=== PATIENT | female | born 1955 | race Caucasian/White ===

== ENCOUNTER 2021-04-10 09:29 | Outpatient (CLI) | payer BC, OTHER ==
[~2021-04-10] VITALS: Ht 160 cm; Wt 70.3 kg
[~2021-04-10 09:29] MED LIST: LVT.05T PO
[2021-04-10] MEDS ORDERED: ONDANSETRON 4 MG/2 ML (SDV) Z0FRAN IV PRN (09:30)
[2021-04-10] MEDS ORDERED: ACETAMINOPHEN 500 MG TAB (TYLENOL) PO PRN (09:30)
[2021-04-10] MEDS ORDERED: CASIRIVIMAB/IMDEVIMAB 1,200 MG in NS (IVPB) 250 ML IV ONE (09:30)
[2021-04-10] MEDS ORDERED: EPINEPHrine INJECTION 1 MG/ML AMP IM PRN (09:30)
[2021-04-10] MEDS ORDERED: diphenhydrAMINE 50 MG/ML INJ (BENADRYL) IV PRN (09:30)
[2021-04-10 10:12] VITALS: BP 124/61
[2021-04-10 11:15] VITALS: BP 126/60
== END 2021-04-10 11:20 | disposition home or self-care (01) ==
LOC: INFUSION 09:29
PROVIDERS: ATTEND Nurse Practitioner Family
DX: U07.1 COVID-19 (principal)

== ENCOUNTER 2023-05-26 05:48 | Outpatient (CLI) | payer MEDICARE ==
[~2023-05-26] VITALS: Ht 160 cm; Wt 73.9 kg
[2023-05-26] MEDS ORDERED: ZINC50TA51 PO (11:11)
[2023-05-26] MEDS ORDERED: LEVO25TA5 PO (11:11)
[2023-05-26] MEDS ORDERED: CALC625T14 PO (11:11)
== END 2023-05-26 11:12 | disposition home or self-care (01) ==
LOC: PREOP 05:48
PROVIDERS: ATTEND Surgery
DX: Z01.818 Encounter for other preprocedural examination (principal)

== ENCOUNTER 2023-06-07 07:44 | Day surgery (SDC) | payer BC, MEDICARE ==
[~2023-06-07] VITALS: Ht 160 cm; Wt 73.9 kg
[~2023-06-07 07:44] MED LIST changes: +CALC625T14 PO; +LEVO25TA5 PO; +ZINC50TA51 PO
[2023-06-07] MEDS ORDERED: LACTATED RINGERS 1,000 ML 1,000 ML IV STA (07:50)
[2023-06-07 08:05] VITALS: BP 113/75
--- NOTE | 2023-06-07 08:40 | Progress Note-Pre Operative ---
Pre-Operative Progress Note Date of Available H&P: May 18, 2023 Date H&P Reviewed: Jun 07, 2023 Time H&P Reviewed: 08:33 History & Physical: H&P Reviewed, Patient Examed, No changes noted Pre-Operative Diagnosis: Screening CHRISTIAN BISHOP DO Jun 07, 2023 08:39
--- NOTE | 2023-06-07 09:38 | Anesthesia-General Post-Op ---
MAC Patient Condition Mental Status/LOC: Same as Preop Cardiovascular: Satisfactory Nausea/Vomiting: Absent Respiratory: Satisfactory Pain: Controlled Complications: Absent Post Op Complications Complications None Follow Up Care/Instructions Patient Instructions None needed. Anesthesiology Discharge Order Discharge Order Patient is doing well, no complaints, stable vital signs, no apparent adverse anesthesia problems. No complications reported per nursing. OTILIA BROWN CRNA Jun 07, 2023 09:38
--- NOTE | 2023-06-07 09:40 | Progress Note-Post Operative ---
Post-Operative Progess Note Surgeon (s)/Commercial Credit Reviewer (s) Surgeon CHRISTIAN BISHOP DO Commercial Credit Reviewer: CONSTANTIN Milian Pre-Operative Diagnosis Screening Post-Operative Diagnosis Diverticula Int Hemorrhoids Procedure & Operative Findings Date of Procedure 06/07/23 Procedure Performed/Findings Colonoscopy PROCEDURE NOTE: After informed consent was obtained, the patient was brought to the endoscopy suite, placed in bed in left lateral decubitus position. She was administered IV sedation by the COMMODITY SUPERVISOR who then monitored her vitals the entire time, heart rate, blood pressure and pulse ox and the scope was inserted. On the way in I noted some diverticula and took a picture on the way out. I pushed all the way to about 150 cm and pushed into the cecum, took a picture of appendiceal orifice and noted the ileocecal valve. Then slowly withdrew the scope insufflating to look circumferentially at the pinto starting in the cecum, up the ascending colon to the hepatic flexure, then down the transverse colon, splenic flexure, into the descending colon down in the sigmoid and then into the rectal vault and retroflexed the scope. Took picture of the internal hemorrhoids. The patient tolerated the procedure. She was recovered in endoscopy suite. Recommended for repeat colonoscopy in 10 years. Anesthesia Type IV sedation by COMMODITY SUPERVISOR Estimated Blood Loss Estimated blood loss (mL): none Specimens/Packing Specimens Removed none CHRISTIAN BISHOP DO Jun 07, 2023 09:40
[2023-06-07 09:41] VITALS: BP 94/62
--- NOTE | 2023-06-07 09:41 | Endoscopy Discharge Instruct ---
Endo Procedure/Findings Findings 1.: Diverticulosis 2.: Internal Hemorrhoids Discharge Instructions - Activity: You might feel a little sleepy until tomorrow. This is due to the medicine you received to relax you. Until tomorrow, you should: NOT drive a car, operate machinery or power tools. NOT drink any alcoholic beverages. NOT make any important decisions or sign importortant papers. Do not return to work until tomorrow, unless otherwise instructed. Resume previous activities tomorrow. Diet: Start by taking liquids. If you tolerate liquids, advance to solid food. 1.: Colonscopy in 10 years Notify Physician - If you experience excessive bleeding, unusual abdominal pain, fever, or chest pain, contact your doctor immediately. Follow-Up: Other Follow up in my office in one week CHRISTIAN BISHOP DO Jun 07, 2023 09:41
[2023-06-07 09:46] VITALS: BP 95/63
[2023-06-07 09:50] VITALS: BP 100/64
[2023-06-07 10:23] VITALS: BP 100/64
== END 2023-06-07 10:20 | disposition home or self-care (01) ==
LOC: ENDO 07:44
PROVIDERS: ATTEND Surgery
DX: Z12.11 Encounter for screening for malignant neoplasm of colon (principal); K64.8 Other hemorrhoids; K57.30 Diverticulosis of large intestine without perforation or abscess without bleeding